=== PATIENT | female | born 1980 | race African-American/Black ===

== ENCOUNTER 2019-06-25 22:12 | Emergency (ER) | payer BC, OTHER ==
[2019-06-25] MEDS ORDERED: Acetaminophen 325 MG TAB ONE (22:36)
[2019-06-25 22:44] LABS: Pregnancy Test - Urine (BHCG) Negative (Negative); Pregu Control Background? CLEAR/WHITE (CLR/WHITE); Pregu Control Bar Appear? YES (CONTROL BAR); Specific Gravity 1.002 (1.002-1.036)
== END 2019-06-25 23:08 | disposition home or self-care (01) ==
LOC: ERS 22:12
DX: L03.115 Cellulitis of right lower limb (principal)
CPT/HCPCS: 81025; 99283